=== PATIENT | female | born 1960 | race Caucasian/White ===

== ENCOUNTER 2017-11-03 13:55 | Outpatient (CLI) | payer OTHER ==
--- NOTE | 2017-11-03 16:47 | MRI ---
MRI OF RIGHT WRIST PERFORMED WITHOUT CONTRAST ENHANCEMENT: 11/03/17 HISTORY: Wrist pain since injury years ago. The carpal tunnel region is unremarkable. The extensor tendons appear normal. There is severe osteoarthritic changes of the first carpometacarpal joint space. There are multiple c arpal cysts identified, both of the proximal as well as distal carpal rows including cysts involving the ulnar side of the scaphoid at the scapholunate joint and at the level of the lunotriquetral joint . The scapholunate and lunotriquetral ligaments are intact. There is also some cyst changes involving the capitate. Incidental note is made of a central perforation of the triangular fibrocartilage. IMPRESSION: 1. Arthritic changes of the wrist. The changes are most pronounced at the first carpometacarpal joint space. There are also carpal cysts identified including changes of the lunate, but no definite evidence for avascular necrosis. 2. Central tear of the triangular fibrocartilage. POS: [facility]
== END 2017-11-03 13:56 | disposition home or self-care (01) ==
LOC: SCSMRI 13:55
PROVIDERS: ATTEND Orthopaedic Surgery Hand Surgery
DX: M87.039 Idiopathic aseptic necrosis of unspecified carpus (principal); M19.031 Primary osteoarthritis, right wrist; S63.512A Sprain of carpal joint of left wrist, initial encounter

== ENCOUNTER 2017-11-30 13:26 | Emergency (ER) | payer OTHER ==
--- NOTE | 2017-11-30 15:23 | RAD ---
3 VIEWS LEFT FOOT: Date: 11/30/17 INDICATION: Left foot injury; patient tripped on a stair while walking out of a trailer on Thursday. Patient comp lains of pain and swelling in the left foot. COMPARISON: None. FINDINGS: No acute fracture or subluxation is evident. Lisfranc alignment appears within normal limits. There i s scattered forefoot and mild midfoot osteoarthrosis. There is prominent plantar and mild posterior c alcaneal enthesophytes. No radiopaque foreign body is evident. IMPRESSION: 1. No acute fracture or subluxation demonstrated. 2. Mild osteoarthrosis of the left foot. POS: [facility]
== END 2017-11-30 14:15 | disposition home or self-care (01) ==
LOC: SCSER 13:26
DX: S93.402A Sprain of unspecified ligament of left ankle, initial encounter (principal); M19.90 Unspecified osteoarthritis, unspecified site; G43.909 Migraine, unspecified, not intractable, without status migrainosus; I10 Essential (primary) hypertension; F32.9 Major depressive disorder, single episode, unspecified; Z79.899 Other long term (current) drug therapy; W10.8XXA Fall (on) (from) other stairs and steps, initial encounter

== ENCOUNTER 2017-12-08 12:22 | Outpatient (CLI) | payer OTHER | END 2017-12-08 12:23 | disposition home or self-care (01) | LOC: BICRAD 12:22 | PROVIDERS: ATTEND Family Medicine | DX: S82.65XA Nondisplaced fracture of lateral malleolus of left fibula, initial encounter for closed fracture (principal) ==

== ENCOUNTER 2018-03-31 13:41 | Outpatient (CLI) | payer OTHER ==
[2018-03-31 15:52] LABS: #Basophils 0.1 thou/uL (0.0-0.2); #Eosinphils 0.2 thou/uL (0.0-0.7); #Lymphocytes 2.3 thou/uL (1.20-3.40); #Monocytes 0.6 thou/uL (0.11-0.59); #Neutrophils 3.3 thou/uL (1.40-6.50); %Basophils 1.1 % (0.0-1.0); %Eosinophils 3.8 % (0.0-10.0); %Lymphocytes 35.1 % (21.0-51.0); %Monocytes 8.6 % (0.0-10.0); %Neutrophils 51.4 % (42.0-75.0); Hemoglobin 12.6 g/dL (12.0-16.0); Mean Corpuscular HGB CONC 34.8 g/dL (32.0-36.0); Mean Corpuscular Hemoglobin 32.1 pg (27.0-31.0); Mean Corpuscular Volume 92.2 fL (78.0-98.0); Mean Platelet Volume 9.1 fL (7.4-10.4); Platelet Count 354 thou/uL (130-400); RBC Distribution Width 10.7 % (11.5-14.5); Red Blood Cell (RBC) Count 3.95 mill/uL (4.20-5.40); White Blood Cell (WBC) Count 6.5 thou/uL (4.8-10.8)
--- NOTE | 2018-03-31 16:13 | RAD ---
PA AND LATERAL CHEST RADIOGRAPH: Date: 03-31-18 History: Pre-operative evaluation. Comparison: None available. FINDINGS: The cardiac silhouette and pulmonary vasculature are within normal limits. The lungs are clear. Minim al degenerative changes are seen in the spine. Minimal vascular calcification is seen in the aortic a rch. IMPRESSION: No acute cardiopulmonary process. POS: [facility]
== END 2018-03-31 13:42 | disposition home or self-care (01) ==
LOC: LABBT 13:41
PROVIDERS: ATTEND Orthopaedic Surgery Hand Surgery
DX: Z01.818 Encounter for other preprocedural examination (principal); M18.11 Unilateral primary osteoarthritis of first carpometacarpal joint, right hand
CPT/HCPCS: 71046; 85025; 93005; 93010